=== PATIENT | male | born 1965 | race Caucasian/White ===

== ENCOUNTER 2019-06-25 11:13 | Emergency (ER) | payer SELFPAY ==
[2019-06-25] MEDS ORDERED: Sodium Chloride 0.9% 2.5 ML Syringe FLUSH PRN ×2 (11:15→11:17)
[2019-06-25] MEDS ORDERED: Sodium Chloride 0.9% 10 ML Syringe FLUSH PRN ×2 (11:15→11:17)
[2019-06-25] MEDS ORDERED: Morphine 4 MG/ML Syringe IVPUSH ONE ×2 (11:25→13:32)
[2019-06-25] MEDS ORDERED: Ondansetron 4 MG/2 ML SDV IVPUSH ONE (11:25)
[2019-06-25] MEDS ORDERED: Sodium Chloride 0.9% 1,000 ML IV ONE ×3 (11:27→15:10)
--- NOTE | 2019-06-25 11:38 | EDM.PDOC ---
ED HPI GENERAL MEDICAL PROBLEM - General Chief Complaint: Abdominal Pain Stated Complaint: SPOKE TO NURSE Time Seen by Provider: 06/25/19 11:17 Source of Information: Reports: Patient History Limitations: Reports: No Limitations - History of Present Illness INITIAL COMMENTS - FREE TEXT/NARRATIVE: HISTORY AND PHYSICAL: History of present illness: Patient is a 54-year-old male who presents to the emergency room with complaints of abdominal pain, nausea, vomiting, bright red blood per rectum and constipation. He reports for approximately 1 to 2 months he has had blood per rectum. He saw Dr. Jauregui last month and initially was scheduled for a colonoscopy but all procedures are on hold due to COIVD-19. He states he has continued to have blood per rectum but has been worse over the past 1 week. "I feel like I'm going (defecating) all the time; and a lot of blood just pours out ". Over the past 3 days he has not had any bowel movement, increased abdominal pain, nausea and vomiting immediately after any oral intake. His abdomen is distended and firm. Since arrival he is now complaining of weakness, shortness of breath, low back pain and tenderness with palpation or any pressure on his low abdomen. He does have a history of hepatitis C, denies any complications with this (never has had ascites/tapped). Patient denies any fever, chills, headache, change in vision, syncope or near syncope. Denies any chest pain, shortness of breath or cough. Review of systems: As per history of present illness and below otherwise all systems reviewed and negative. Past medical history: As per history of present illness and as reviewed below otherwise noncontributory. Surgical history: As per history of present illness and as reviewed below otherwise noncontributory. Social history: See social history for further information Family history: As per history of present illness and as reviewed below otherwise noncontributory. Physical exam: General: Chronically ill appearing 54-year-old male. Alert and oriented. Moderate distress due to abdominal pain but nontoxic appearing. Vital signs are stable and have been reviewed by me. HEENT: Atraumatic, normocephalic, pupils equal and reactive bilaterally, negative for conjunctival pallor or scleral icterus, mucous membranes moist, throat clear, neck supple, nontender, trachea midline. No drooling or trismus noted. No meningeal signs. No hot potato voice noted. Lungs: Clear to auscultation, breath sounds equal bilaterally, chest nontender. Heart: S1S2, regular rate and rhythm without overt murmur Abdomen: Firm, distended and generalized tenderness throughout. Negative for costovertebral tenderness. Pelvis: Stable nontender. Rectal: This was done with consent and a service car driver at the bedside. Hemoccult positive. Skin: Jaundiced with callahan hue appearance. Otherwise skin is intact, warm, dry. No lesions or rashes noted. Extremities: Atraumatic, moves all extremities per self without difficulty or deficits, negative for cords or calf pain. He is ambulatory; needs assitance due to weakness. Neurovascular unremarkable. Neuro: Awake, alert, oriented. Cranial nerves II through XII unremarkable. Cerebellum unremarkable. Motor and sensory unremarkable throughout. Exam nonfocal. Notes: Upon patient arrival Dr Berry was involved in patient care; he did assess this patient as well. Nursing staff and myself have had difficult time with IV access, DESIGN ENG was called to start line. Nursing was able to get enough blood for labs to be drawn, his vitals are stable. 1230: DESIGN ENG was able to get IV access. Blood culture was obtained. IV abx ordered due to leukocytosis/sepsis protocol 1420: Nursing staff has called CT multiple times for results for this patient. Patient remains vitally stable and is comfortable at this time. He denies any nausea or dry heaving. 1430: CT shows liver lesions which are suspicious for metastatic lesions. 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 Dr. Jauregui, general surgeon on-call was notified of this patient. He would like the patient transferred to [facility] in [facility] as he feels this will be a complex case. 1445: Dr. Hargrove, ER physician at [facility] in [place], was consulted on this case. He did speak with the general surgeon to make sure they were comfortable accepting this case. He did call back to confirm that they will accept this patient for further care and management. Patient was made aware of all diagnostic findings. He is comfortable and denies any nausea or vomiting, declines wanting an NG tube at this time. Dr. Hargrove did not have any additional orders for transfer. Will go via ground EMS Diagnostics: CBC, CMP, UA, Lipase, Ammonia, CT abdomen and pelvis, type and screen, Hemoccult stool Therapeutics: IV x 2, IV fluid, Morphine, Zofran, Vancomycin Impression: Bowel obstruction History of Hepatitis C Plan: Transfer to [facility] via ground EMS. Definitive disposition and diagnosis as appropriate pending reevaluation and review of above. Duration: Week(s): Location: Reports: Abdomen, Back lower abdomen Pain Score (Numeric/FACES): 7 - Related Data Allergies Allergy/AdvReac Type Severity Reaction Status Date / Time No Known Allergies Allergy Verified 06/25/19 11:38 Home Meds: Home Meds . [No Known Home Meds] 05/26/19 [History] ED ROS GENERAL - Review of Systems Review Of Systems: Comprehensive ROS is negative, except as noted in HPI. ED EXAM, GI/ABD - Physical Exam Exam: See Below (See dictation) Course - Vital Signs Last Recorded V/S: Last Vital Signs Temp 97.4 F 06/25/19 11:20 Pulse 82 06/25/19 13:31 Resp 18 06/25/19 13:31 BP 148/101 H 06/25/19 13:31 Pulse Ox 97 06/25/19 13:31 - Orders/Labs/Meds Orders: Active Orders 24 hr Category Date Time Status EKG Documentation Completion [RC] STAT Care 06/25/19 11:15 Active Oxygen Therapy, ED [RC] ASDIRECTED Care 06/25/19 13:07 Active CULTURE BLOOD [BC] Stat Lab 06/25/19 12:25 Results CULTURE BLOOD [BC] Stat Lab 06/25/19 12:32 Received UA RFX PETAR AND CULT IF INDIC [URIN] Stat Lab 06/25/19 14:34 Ordered Sodium Chloride 0.9% [Saline Flush] Med 06/25/19 11:15 Active 10 ml FLUSH ASDIRECTED PRN Sodium Chloride 0.9% [Saline Flush] Med 06/25/19 11:17 Active 10 ml FLUSH ASDIRECTED PRN Sodium Chloride 0.9% [Saline Flush] Med 06/25/19 11:15 Active 2.5 ml FLUSH ASDIRECTED PRN Sodium Chloride 0.9% [Saline Flush] Med 06/25/19 11:17 Active 2.5 ml FLUSH ASDIRECTED PRN Blood Culture x2 Reflex Set [OM.PC] Stat Oth 06/25/19 12:30 Ordered Saline Lock Insert [OM.PC] Stat Oth 06/25/19 11:15 Ordered Saline Lock Insert [OM.PC] Stat Oth 06/25/19 11:17 Ordered Medication Orders Sodium Chloride (Saline Flush) 10 ml FLUSH ASDIRECTED PRN PRN Reason: Keep Vein Open Last Admin: 06/25/19 13:16 Dose: 10 ml Sodium Chloride (Saline Flush) 2.5 ml FLUSH ASDIRECTED PRN PRN Reason: Keep Vein Open Last Admin: 06/25/19 13:16 Dose: 2.5 ml Sodium Chloride (Saline Flush) 10 ml FLUSH ASDIRECTED PRN PRN Reason: Keep Vein Open Last Admin: 06/25/19 13:16 Dose: 10 ml Sodium Chloride (Saline Flush) 2.5 ml FLUSH ASDIRECTED PRN PRN Reason: Keep Vein Open Last Admin: 06/25/19 13:16 Dose: 2.5 ml Labs: Laboratory Tests 06/25/19 06/25/19 06/25/19 Range/Units 11:15 11:15 11:15 WBC 23.20 H (4.0-11.0) K/uL RBC 5.35 (4.50-5.90) M/uL Hgb 17.0 (13.0-17.0) g/dL Hct 49.8 (38.0-50.0) % MCV 93.1 (80.0-98.0) fL MCH 31.8 (27.0-32.0) pg MCHC 34.1 (31.0-37.0) g/dL RDW Std Deviation 42.4 (28.0-62.0) fl RDW Coeff of Vicky 13 (11.0-15.0) % Plt Count 478 H (150-400) K/uL MPV 9.80 (7.40-12.00) fL Neut % (Auto) 84.5 H (48.0-80.0) % Lymph % (Auto) 7.2 L (16.0-40.0) % [place] % (Auto) 8.2 (0.0-15.0) % Eos % (Auto) 0.0 (0.0-7.0) % Baso % (Auto) 0.1 (0.0-1.5) % Neut # (Auto) 19.6 H (1.4-5.7) K/uL Lymph # (Auto) 1.7 (0.6-2.4) K/uL [place] # (Auto) 1.9 H (0.0-0.8) K/uL Eos # (Auto) 0.0 (0.0-0.7) K/uL Baso # (Auto) 0.0 (0.0-0.1) K/uL Nucleated RBC % 0.0 /100WBC Nucleated RBCs # 0 K/uL INR 1.05 Lactate (0.20-2.00) mmol/L Sodium 135 L (136-148) mmol/L Potassium 4.4 (3.5-5.1) mmol/L Chloride 95 L (98-107) mmol/L Carbon Dioxide 30.6 (21.0-32.0) mmol/L BUN 25 H (7.0-18.0) mg/dL Creatinine 1.1 (0.8-1.3) mg/dL Est Cr Clr Drug Dosing TNP Estimated GFR (MDRD) > 60.0 ml/min Glucose 141 H (74-106) mg/dL Calcium 9.2 (8.5-10.1) mg/dL Total Bilirubin 0.9 (0.2-1.0) mg/dL AST 32 (15-37) IU/L ALT 30 (14-63) IU/L Alkaline Phosphatase 110 (46-116) U/L Ammonia (19-54) ug/dL Total Protein 7.8 (6.4-8.2) g/dL Albumin 3.7 (3.4-5.0) g/dL Globulin 4.1 H (2.6-4.0) g/dL Albumin/Globulin Ratio 0.9 (0.9-1.6) Lipase (73-393) U/L Blood Type Antibody Screen 06/25/19 06/25/19 06/25/19 Range/Units 11:15 11:15 12:25 WBC (4.0-11.0) K/uL RBC (4.50-5.90) M/uL Hgb (13.0-17.0) g/dL Hct (38.0-50.0) % MCV (80.0-98.0) fL MCH (27.0-32.0) pg MCHC (31.0-37.0) g/dL RDW Std Deviation (28.0-62.0) fl RDW Coeff of Vicky (11.0-15.0) % Plt Count (150-400) K/uL MPV (7.40-12.00) fL Neut % (Auto) (48.0-80.0) % Lymph % (Auto) (16.0-40.0) % [place] % (Auto) (0.0-15.0) % Eos % (Auto) (0.0-7.0) % Baso % (Auto) (0.0-1.5) % Neut # (Auto) (1.4-5.7) K/uL Lymph # (Auto) (0.6-2.4) K/uL [place] # (Auto) (0.0-0.8) K/uL Eos # (Auto) (0.0-0.7) K/uL Baso # (Auto) (0.0-0.1) K/uL Nucleated RBC % /100WBC Nucleated RBCs # K/uL INR Lactate (0.20-2.00) mmol/L Sodium (136-148) mmol/L Potassium (3.5-5.1) mmol/L Chloride (98-107) mmol/L Carbon Dioxide (21.0-32.0) mmol/L BUN (7.0-18.0) mg/dL Creatinine (0.8-1.3) mg/dL Est Cr Clr Drug Dosing Estimated GFR (MDRD) ml/min Glucose (74-106) mg/dL Calcium (8.5-10.1) mg/dL Total Bilirubin (0.2-1.0) mg/dL AST (15-37) IU/L ALT (14-63) IU/L Alkaline Phosphatase (46-116) U/L Ammonia <17 L (19-54) ug/dL Total Protein (6.4-8.2) g/dL Albumin (3.4-5.0) g/dL Globulin (2.6-4.0) g/dL Albumin/Globulin Ratio (0.9-1.6) Lipase 52 L (73-393) U/L Blood Type AB POSITIVE Antibody Screen NEGATIVE 04/25/20 Range/Units 12:25 WBC (4.0-11.0) K/uL RBC (4.50-5.90) M/uL Hgb (13.0-17.0) g/dL Hct (38.0-50.0) % MCV (80.0-98.0) fL MCH (27.0-32.0) pg MCHC (31.0-37.0) g/dL RDW Std Deviation (28.0-62.0) fl RDW Coeff of Vicky (11.0-15.0) % Plt Count (150-400) K/uL MPV (7.40-12.00) fL Neut % (Auto) (48.0-80.0) % Lymph % (Auto) (16.0-40.0) % [place] % (Auto) (0.0-15.0) % Eos % (Auto) (0.0-7.0) % Baso % (Auto) (0.0-1.5) % Neut # (Auto) (1.4-5.7) K/uL Lymph # (Auto) (0.6-2.4) K/uL [place] # (Auto) (0.0-0.8) K/uL Eos # (Auto) (0.0-0.7) K/uL Baso # (Auto) (0.0-0.1) K/uL Nucleated RBC % /100WBC Nucleated RBCs # K/uL INR Lactate 2.6 H* (0.20-2.00) mmol/L Sodium (136-148) mmol/L Potassium (3.5-5.1) mmol/L Chloride (98-107) mmol/L Carbon Dioxide (21.0-32.0) mmol/L BUN (7.0-18.0) mg/dL Creatinine (0.8-1.3) mg/dL Est Cr Clr Drug Dosing Estimated GFR (MDRD) ml/min Glucose (74-106) mg/dL Calcium (8.5-10.1) mg/dL Total Bilirubin (0.2-1.0) mg/dL AST (15-37) IU/L ALT (14-63) IU/L Alkaline Phosphatase (46-116) U/L Ammonia (19-54) ug/dL Total Protein (6.4-8.2) g/dL Albumin (3.4-5.0) g/dL Globulin (2.6-4.0) g/dL Albumin/Globulin Ratio (0.9-1.6) Lipase (73-393) U/L Blood Type Antibody Screen Meds: Medications Generic Name Dose Route Start Last Admin Trade Name Romero PRN Reason Stop Dose Admin Sodium Chloride 10 ml 06/25/19 11:15 06/25/19 13:16 Saline Flush FLUSH 10 ml ASDIRECTED PRN Administration Keep Vein Open Sodium Chloride 2.5 ml 06/25/19 11:15 06/25/19 13:16 Saline Flush FLUSH 2.5 ml ASDIRECTED PRN Administration Keep Vein Open Sodium Chloride 10 ml 06/25/19 11:17 06/25/19 13:16 Saline Flush FLUSH 10 ml ASDIRECTED PRN Administration Keep Vein Open Sodium Chloride 2.5 ml 06/25/19 11:17 06/25/19 13:16 Saline Flush FLUSH 2.5 ml ASDIRECTED PRN Administration Keep Vein Open Discontinued Medications Generic Name Dose Route Start Last Admin Trade Name Romero PRN Reason Stop Dose Admin Sodium Chloride 1,000 mls @ 999 mls/hr 06/25/19 11:27 06/25/19 12:35 Normal Saline IV 06/25/19 12:27 999 mls/hr STAT ONE Administration Sodium Chloride 1,000 mls @ 999 mls/hr 06/25/19 12:39 06/25/19 13:14 Normal Saline IV 06/25/19 13:39 999 mls/hr STAT ONE Administration Vancomycin HCl 1 gm/ Sodium 250 mls @ 166 mls/hr 06/25/19 12:40 06/25/19 13: 14 Chloride IV 06/25/19 14:10 166 mls/hr ONETIME ONE Administration Iopamidol 100 ml 06/25/19 13:46 06/25/19 13:46 Isovue Multipack-370 (76%) IVPUSH 06/25/19 13:47 100 ml ONETIME ONE Administration Morphine Sulfate 4 mg 06/25/19 11:25 06/25/19 12:35 Morphine IVPUSH 06/25/19 11:26 4 mg ONETIME ONE Administration Morphine Sulfate 4 mg 06/25/19 13:32 06/25/19 13:50 Morphine IVPUSH 06/25/19 13:33 4 mg ONETIME ONE Administration Ondansetron HCl 4 mg 06/25/19 11:25 06/25/19 12:35 Zofran IVPUSH 06/25/19 11:26 4 mg ONETIME ONE Administration Departure - Departure Time of Disposition: 15:00 Disposition: DC/Tfer to [facility] 02 Clinical Impression: History of hepatitis C Bowel obstruction Qualifiers: Intestinal obstruction type: unspecified Intestinal obstruction extent: unspecified extent Qualified Code(s): K56.609 - Unspecified intestinal obstruction, unspecified as to partial versus complete obstruction - Discharge Information Referrals: PCP,Unobtain [Primary Care Provider] - Forms: ED Department Discharge Sepsis Event Note - Focused Exam Vital Signs: Vital Signs Temp Pulse Resp BP Pulse Ox 06/25/19 13:31 82 18 148/101 H 97 06/25/19 12:42 82 18 140/97 H 95 06/25/19 11:20 97.4 F 92 18 129/96 H 92 L Date Exam was Performed: 06/25/19 Time Exam was Performed: 15:00 - My Orders Last 24 Hours: My Active Orders 06/25/19 11:15 EKG Documentation Completion [RC] STAT Sodium Chloride 0.9% [Saline Flush] 10 ml FLUSH ASDIRECTED PRN Sodium Chloride 0.9% [Saline Flush] 2.5 ml FLUSH ASDIRECTED PRN Saline Lock Insert [OM.PC] Stat 06/25/19 11:17 Sodium Chloride 0.9% [Saline Flush] 10 ml FLUSH ASDIRECTED PRN Sodium Chloride 0.9% [Saline Flush] 2.5 ml FLUSH ASDIRECTED PRN Saline Lock Insert [OM.PC] Stat 06/25/19 12:25 CULTURE BLOOD [BC] Stat 06/25/19 12:30 Blood Culture x2 Reflex Set [OM.PC] Stat 06/25/19 12:32 CULTURE BLOOD [BC] Stat 06/25/19 13:07 Oxygen Therapy, ED [RC] ASDIRECTED 06/25/19 14:34 UA RFX PETAR AND CULT IF INDIC [URIN] Stat - Assessment/Plan Last 24 Hours: My Active Orders 06/25/19 11:15 EKG Documentation Completion [RC] STAT Sodium Chloride 0.9% [Saline Flush] 10 ml FLUSH ASDIRECTED PRN Sodium Chloride 0.9% [Saline Flush] 2.5 ml FLUSH ASDIRECTED PRN Saline Lock Insert [OM.PC] Stat 06/25/19 11:17 Sodium Chloride 0.9% [Saline Flush] 10 ml FLUSH ASDIRECTED PRN Sodium Chloride 0.9% [Saline Flush] 2.5 ml FLUSH ASDIRECTED PRN Saline Lock Insert [OM.PC] Stat 06/25/19 12:25 CULTURE BLOOD [BC] Stat 06/25/19 12:30 Blood Culture x2 Reflex Set [OM.PC] Stat 06/25/19 12:32 CULTURE BLOOD [BC] Stat 06/25/19 13:07 Oxygen Therapy, ED [RC] ASDIRECTED 06/25/19 14:34 UA RFX PETAR AND CULT IF INDIC [URIN] Stat
[2019-06-25 12:01] LABS: BLOOD UREA NITROGEN,BUN 25 mg/dL (7.0-18.0); CARBON DIOXIDE,CO2 30.6 mmol/L (21.0-32.0); CHLORIDE,CL 95 mmol/L (98-107); GLUCOSE RANDOM 141 mg/dL (74-106); POTASSIUM,K 4.4 mmol/L (3.5-5.1); SODIUM,NA 135 mmol/L (136-148)
--- NOTE | 2019-06-25 12:40 | PCM.SN.2 ---
- Free Text/Narrative Note: consulted for IV placement. Several IV attempts made by ER staff. Patient identified, verbal consent from patient to place an IV. L) AC attempt with no success. R) AC 2 attempts with ultrasound with 1 successful. Aseptic technique- [address] lateral side of AC, Labs obtained, dressing applied and secured with tape. ER nurse notified.
[2019-06-25] MEDS ORDERED: Iopamidol 755 MG/ML 200 ML Multipack Bottle IVPUSH ONE (13:46)
--- NOTE | 2019-06-25 14:33 | CT ---
CT abdomen and pelvis Technique: Multiple axial sections were obtained from above the dome of the diaphragm inferiorly through the pubic symphysis. Intravenous contrast was utilized. No oral contrast has been given. Comparison: No prior abdominal imaging is available. Findings: Very minimal right-sided pleural effusion is seen. Spleen shows evidence of calcifications compatible with calcified granulomas. Liver shows at least 2 low density lesions which are suspicious for metastatic disease. Small hiatal hernia is noted. Adrenal glands show no nodule. Right kidney shows no hydronephrosis or mass. Left kidney shows 2 small low density findings believed to represent small cysts with largest measuring 1 cm. Pancreas shows no discrete abnormality. Aorta shows no aneurysm. Atherosclerotic calcification is noted within the aortoiliac arteries. No retroperitoneal adenopathy is seen. Diffusely dilated colon is seen containing air and bowel material. Air is noted between bowel material and colonic wall on the right side believed to represent luminal air rather than definite pneumatosis coli. There is soft tissue material within the sigmoid colon which is felt to represent the obstructing lesion. 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 Appendix not definitely visualized. No pelvic adenopathy is appreciated. Bone window settings were reviewed which shows mild diffuse degenerative change within the spine. No acute osseous finding is appreciated. Impression: 1. 2 low density liver lesions suspicious for metastatic lesions. One lesion measures approximately 2.9 cm and 2nd lesion measures approximately 4.3 cm. 2. 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 Endoscopy correlation is recommended. 3. Other findings as noted above. Diagnostic code #9 This report was dictated in MDT
[2019-06-25] MEDS ORDERED: Morphine 2 MG/ML Syringe IVPUSH ONE (15:10)
== END 2019-06-25 15:41 ==
LOC: MW.ED 11:13
DX: K56.609 Unspecified intestinal obstruction, unspecified as to partial versus complete obstruction (principal); Z86.19 Personal history of other infectious and parasitic diseases
CPT/HCPCS: 36415; 74177; 80053; 82140; 83605; 83690; 85025; 85610; 86850; 86900; 86901; 87040; 93005; 96361; 96365; 96366; 96375; 96376; 99285; J2270; J2405; J3370; J7030; J7050; Q9967; 99284

== ENCOUNTER 2019-07-21 09:02 | Day surgery (SDC) | payer MEDICAID ==
[~2019-07-21 09:02] MED LIST: Sodium Chloride 0.9% 10 ML SDV IV PRN; Sodium Chloride 0.9% 10 ML Syringe FLUSH PRN; Sodium Chloride 0.9% 2.5 ML Syringe FLUSH PRN
[2019-07-21] MEDS ORDERED: Propofol 200 MG/20 ML SDV ONE ×2 (09:05→09:22)
[2019-07-21] MEDS ORDERED: fentaNYL 100 MCG/2 ML SDV ONE (09:05)
[2019-07-21] MEDS ORDERED: Lidocaine 2% 5 ML SDV ONE (09:05)
[2019-07-21] MEDS ORDERED: Midazolam 1 MG/ML 2 ML SDV ONE (09:05)
--- NOTE | 2019-07-21 09:39 | PCM.PREANE ---
Preanesthetic Assessment - Anesthesia/Transfusion/Family Hx Anesthesia History: Prior Anesthesia Without Reaction Family History of Anesthesia Reaction: No Transfusion History: No Prior Transfusion(s) Intubation History: Unknown - Review of Systems General: No Symptoms Pulmonary: No Symptoms Cardiovascular: No Symptoms Gastrointestinal: No Symptoms Neurological: No Symptoms Other: Reports: None - Physical Assessment Height: 5 ft 11 in Weight: 70.307 kg ASA Class: 2 Mental Status: Alert & Oriented x3 Airway Class: Mallampati = 2 Dentition: Reports: Normal Dentition Thyro-Mental Finger Breadths: 3 Mouth Opening Finger Breadths: 3 ROM/Head Extension: Full Lungs: Clear to Auscultation, Normal Respiratory Effort Cardiovascular: Regular Rate, Regular Rhythm - Allergies Allergies/Adverse Reactions: Allergies Allergy/AdvReac Type Severity Reaction Status Date / Time No Known Allergies Allergy Verified 07/08/19 08:49 - Blood Blood Available: No - Anesthesia Plan Pre-Op Medication Ordered: None - Acknowledgements Anesthesia Type Planned: MAC Pt an Appropriate Candidate for the Planned Anesthesia: Yes Alternatives and Risks of Anesthesia Discussed w Pt/Guardian: Yes Pt/Guardian Understands and Agrees with Anesthesia Plan: Yes PreAnesthesia Questionnaire HEENT History: Reports: None Cardiovascular History: Reports: Heart Murmur Respiratory History: Reports: None Gastrointestinal History: Reports: Hepatitis, Other (See Below) (sigmoid colon lesion) Other Gastrointestinal History: h/o hepatitis C, not treated Genitourinary History: Reports: None Musculoskeletal History: Reports: Fracture Other Musculoskeletal History: fx arm as a child Neurological History: Reports: None Psychiatric History: Reports: None Endocrine/Metabolic History: Reports: None Hematologic History: Reports: None Immunologic History: Reports: None Oncologic (Cancer) History: Reports: None Dermatologic History: Reports: None - Infectious Disease History Infectious Disease History: Reports: Hepatitis C - Past Surgical History Head Surgeries/Procedures: Reports: None HEENT Surgical History: Reports: None Cardiovascular Surgical History: Reports: None Respiratory Surgical History: Reports: None GI Surgical History: Reports: Colon, Colostomy (transferse colostomy 2-3 weeks ago), Other (See Below) Other GI Surgeries/Procedures: surgery for obstructing colon mass with colostomy Male Surgical History: Reports: None Endocrine Surgical History: Reports: None Neurological Surgical History: Reports: None Musculoskeletal Surgical History: Reports: None Oncologic Surgical History: Reports: None Dermatological Surgical History: Reports: None - SUBSTANCE USE Smoking Status *Q: Current Every Day Smoker (1 ppd) Tobacco Use Within Last Twelve Months: Cigarettes Recreational Drug Type: Reports: Methamphetamine (last time 2-3 weeks ago before colon surgery) Recreational Drug Last Use: last used 7 months ago - HOME MEDS Home Medications: Home Meds Acetaminophen/oxyCODONE [Percocet 325-5 MG] 1 - 2 tab PO ASDIRECTED PRN [History] - CURRENT (IN HOUSE) MEDS Current Meds: Current Medications Lactated Ringer's (Ringers, Lactated) 1,000 mls @ 125 mls/hr IV ASDIRECTED AMANDA Sodium Chloride (Saline Flush) 10 ml FLUSH ASDIRECTED PRN PRN Reason: Keep Vein Open Sodium Chloride (Saline Flush) 2.5 ml FLUSH ASDIRECTED PRN PRN Reason: Keep Vein Open Sodium Chloride (Saline Flush) 10 ml FLUSH ASDIRECTED PRN PRN Reason: Keep Vein Open Sodium Chloride (Saline Flush) 2.5 ml FLUSH ASDIRECTED PRN PRN Reason: Keep Vein Open Sodium Chloride (Normal Saline) 10 ml IV ASDIRECTED PRN PRN Reason: IV Use Discontinued Medications Fentanyl (Sublimaze) Confirm Administered Dose 100 mcg .ROUTE .STK-MED ONE Stop: 07/21/19 09:06 Lidocaine (Xylocaine-Mpf 2%) Confirm Administered Dose 5 ml .ROUTE .STK-MED ONE Stop: 07/21/19 09:06 Midazolam HCl (Versed 1 Mg/Ml) Confirm Administered Dose 2 mg .ROUTE .STK-MED ONE Stop: 07/21/19 09:06 Propofol (Diprivan 20 Ml) Confirm Administered Dose 400 mg .ROUTE .STK-MED ONE Stop: 07/21/19 09:06 Propofol (Diprivan 20 Ml) Confirm Administered Dose 200 mg .ROUTE .STK-MED ONE Stop: 07/21/19 09:23
[2019-07-21] MEDS: Lactated Ringers 1,000 ML IV SCH ×2 (09:55→11:03)
[2019-07-21] MEDS ORDERED: ePHEDrine 50 MG/ML SDV ONE (10:07)
[2019-07-21] MEDS ORDERED: Glycopyrrolate 0.2 MG/ML SDV ONE (10:13)
[2019-07-21] MEDS ORDERED: cefOXitin 1 GM Vial ONE (10:20)
[2019-07-21] MEDS ORDERED: Sodium Chloride 0.9% 20 ML ONE (10:20)
--- NOTE | 2019-07-21 10:47 | PCM.POSTAN ---
POST ANESTHESIA ASSESSMENT - MENTAL STATUS Mental Status: Alert, Oriented - VITAL SIGNS Vital Signs: Last Vital Signs Temp 36.7 C 07/21/19 09:10 Pulse 75 07/21/19 09:10 Resp 18 07/21/19 09:10 BP 102/70 07/21/19 09:10 Pulse Ox 98 07/21/19 09:10 - RESPIRATORY Respiratory Status: Respiratory Rate WNL, Airway Patent, O2 Saturation Stable - CARDIOVASCULAR CV Status: Pulse Rate WNL, Blood Pressure Stable - GASTROINTESTINAL GI Status: No Symptoms - PAIN Pain Score: 0 - POST OP HYDRATION Hydration Status: Adequate & Stable - OBSERVATIONS Free Text/Narrative:: No anesthesia problems
--- NOTE | 2019-07-21 11:00 | PCM.OPNOTE ---
- General Post-Op/Procedure Note Date of Surgery/Procedure: 07/21/19 Operative Procedure(s): Flexible sigmoidoscopy with biopsy Findings: Obstructing mass at 20 cm Pre Op Diagnosis: Sigmoid colon mass Post-Op Diagnosis: same Anesthesia Technique: MAC Primary Surgeon: Soni Yun Condition: Good Free Text/Narrative:: Intake & Output 07/20/19 07/21/19 07/21/19 22:59 06:59 14:59 Intake Total 900 Balance 900
--- NOTE | 2019-07-21 11:05 | PCM.SN.2 ---
- Free Text/Narrative Note: Patient is a 54 year old male who presented for a flexible sigmoidoscopy. He has a mass in the sigmoid colon and biopsies were needed. He did not come with a ride. He is unreliable and he stated that he had no one to take him home. The decision was made to keep him overnight for observation. Then he changed his story and said that he did have a ride. He also told us he came to the hospital via a cab but then said he drove here. I told the patient that if he has someone who can come here, sign for him, and take him home he can go home today. I reinforced with him that he cannot drive today at all. He is at risk of hurting himself or others with the medications he has received and it is illegal. If he cannot produce a ride he will be admitted to the hospital for close monitoring. During the case, he had low BP and needed pressors. He will need an ECHO either if he stays in house or as an outpatient. I am also concerned that he may be using illicit drugs given his unreliable behavior. Will need drug testing (UA) as this can affect the medications he receiving or will receive in the future.
--- NOTE | 2019-07-21 15:17 | OR ---
SURGEON: SONI YUN MD DATE OF PROCEDURE: 07/21/2019 PREOPERATIVE DIAGNOSIS: Sigmoid colon mass. POSTOPERATIVE DIAGNOSIS: Sigmoid colon mass. PROCEDURE PERFORMED: Flexible sigmoidoscopy. PRIMARY SURGEON: Soni Yun MD ANESTHESIA: MAC. INSTRUMENT USED: Olympus colonoscope. EXTENT OF EXAM: To 20 cm from the anal verge. PREPARATION: Good. LIMITATIONS: None. INDICATIONS: The patient is a 54-year-old male who recently underwent an emergent diverting loop colostomy for an obstructing colonic mass. The patient has recovered and is now in need of a diagnostic procedure to determine what this mass in his sigmoid colon is. The patient and I discussed the procedure; expected perioperative course; and the risks including bleeding, infection, or perforation. He verbalized understanding and wishes to proceed. PROCEDURE IN DETAIL: The patient was brought into the OR and placed in the left lateral decubitus position on the OR cart. A time-out was completed verifying the patient's name, age, date of , allergies, and procedure to be performed. Monitored anesthesia care was induced. Continuous oxygen was provided via nasal cannula throughout the procedure. The patient was noted during the procedure to have very low blood pressure and required pressors while receiving anesthesia. Once adequate anesthesia was induced and the patient was stable, a digital rectal exam was performed. This exam was within normal limits. A well-lubricated colonoscope was inserted in the rectum and advanced under direct visualization to 20 cm from the anal verge. At this level, I encountered an irregular appearing colonic mass that appeared to be obstructing the colon. Multiple biopsies of this were taken using cold biopsy forceps and sent to pathology, labeled as sigmoid colon mass. Several pictures of the area were taken. I then monitored the area for hemostasis. Once I was assured that hemostasis had been achieved, the scope was then fully withdrawn. The remainder of the colon was closely inspected. Other than some mild proctitis, the remainder of the colon appeared normal. The scope was removed and the procedure terminated. The patient was taken to PACU. His blood pressure improved with fluids and cessation of anesthesia. He otherwise tolerated the procedure well with no acute complications. ENDOSCOPIC DIAGNOSIS: Sigmoid colon mass. RECOMMENDATIONS: Follow up in clinic in 2 weeks to review the pathology results and the next steps in treatment. Pathology results will be sent to [facility] for further review as well. ABHISHEK / BENJAMÍN /[id number]
--- NOTE | 2019-07-21 15:20 | PCM48HPAN ---
Post Anesthesia Note - EVALUATION WITHIN 48HRS OF ANESTHETIC Vital Signs in Normal Range: Yes Patient Participated in Evaluation: Yes Respiratory Function Stable: Yes Airway Patent: Yes Cardiovascular Function Stable: Yes Hydration Status Stable: Yes Pain Control Satisfactory: Yes Nausea and Vomiting Control Satisfactory: Yes Mental Status Recovered: Yes Vital Signs: Last Vital Signs Temp 36.6 C 07/21/19 12:30 Pulse 66 07/21/19 12:30 Resp 18 07/21/19 12:30 BP 100/64 07/21/19 12:30 Pulse Ox 97 07/21/19 12:30 - COMMENTS/OBSERVATIONS Free Text/Narrative:: No anesthesia problems
== END 2019-07-21 14:47 | disposition home or self-care (01) ==
LOC: MW.SDS 09:02 → MW.MS 10:51 → MW.SDS 14:47
PROVIDERS: ATTEND Surgery
DX: C18.7 Malignant neoplasm of sigmoid colon (principal); K62.89 Other specified diseases of anus and rectum; R01.1 Cardiac murmur, unspecified; F17.210 Nicotine dependence, cigarettes, uncomplicated
CPT/HCPCS: 45331; J0694; J2001; J2250; J2704; J3010; J3490; J7120

== ENCOUNTER 2019-07-27 16:19 | Emergency (ER) | payer MEDICAID, OTHER ==
[2019-07-27] MEDS ORDERED: Sodium Chloride 0.9% 10 ML Syringe FLUSH PRN (16:30)
[2019-07-27] MEDS ORDERED: Ondansetron 4 MG/2 ML SDV IVPUSH ONE ×2 (16:30→19:30)
[2019-07-27] MEDS ORDERED: Sodium Chloride 0.9% 1,000 ML IV ONE ×2 (16:30→20:20)
[2019-07-27] MEDS ORDERED: Sodium Chloride 0.9% 2.5 ML Syringe FLUSH PRN (16:30)
--- NOTE | 2019-07-27 16:41 | EDM.PDOC ---
ED HPI GENERAL MEDICAL PROBLEM - General Chief Complaint: Abdominal Pain Stated Complaint: SICK TO STOMACH Time Seen by Provider: 07/27/19 16:40 Source of Information: Reports: Patient History Limitations: Reports: No Limitations - History of Present Illness INITIAL COMMENTS - FREE TEXT/NARRATIVE: HISTORY AND PHYSICAL: History of present illness: Patient is a 54-year-old male presents to the ED with complaint of abdominal pain. Patient was seen in the ED 1 month ago for a bowel obstruction, was sent to [place] and had a colostomy placed. Patient had a follow up with Dr. Yun and had a colonoscopy with biopsy. He states he has a follow up on this in 2 days. He reports for the past 3 days he has been having generalized abdominal pain and states he has not had any stool in his colostomy. He states he reports having nausea and has vomited twice today. He denies fevers, chills, chest pain , shortness of breath, cough, dysuria, hematuria, back pain. Patient states he is out of his norco. Patient has a follow with Dr. Yun in 2 days to go over results. Review of systems: As per history of present illness and below otherwise all systems reviewed and negative. Past medical history: As per history of present illness and as reviewed below otherwise noncontributory. Surgical history: As per history of present illness and as reviewed below otherwise noncontributory. Social history: No reported history of drug or alcohol abuse. Family history: As per history of present illness and as reviewed below otherwise noncontributory. Physical exam: General: Patient sitting comfortably in no acute distress and nontoxic appearing HEENT: Atraumatic, normocephalic, pupils reactive, negative for conjunctival pallor or scleral icterus, mucous membranes moist, throat clear, neck supple, nontender, trachea midline. No meningeal signs. Lungs: Clear to auscultation, breath sounds equal bilaterally, chest nontender. Heart: S1S2, regular, negative for clicks, rubs, or overt murmur. Abdomen: Soft, nondistended, nontender. Colostomy in place with stool and gas. There is no obvious blood or melena. Skin around ostomy without erythema. Negative for masses or hepatosplenomegaly. Negative for costovertebral tenderness. No rigidity, rebound, guarding. Pelvis: Stable nontender. Genitourinary: Deferred. Rectal: Deferred. Extremities: Atraumatic, negative for cords or calf pain. Neurovascular unremarkable. Neuro: Awake, alert, oriented. Cranial nerves II through XII unremarkable. Cerebellum unremarkable. Motor and sensory unremarkable throughout. Exam nonfocal. Notes: I did discuss findings with Dr. Jaimes, general surgery in [place], he states patient can follow up with general surgery here for outpatient EGD or gastric emptying study. He states NG may be placed if patient continues to have vomiting. He did vomit once while in ED but controlled with zofran. Diagnostics: CBC, CMP, UA Therapeutics: 1L NS IV 4mg Zofran IV 4mg Morphine IV Prescriptions: Callahan (#15) Zofran Impression: Abdominal pain, vomiting Plan: Take zofran as needed for nausea and vomiting. You may take norco as needed for severe pain, do not take while driving as it may make you drowsy Follow up with general surgery at your scheduled appointment Return to ED as needed as discussed Definitive disposition and diagnosis as appropriate pending reevaluation and review of above. abdominal Pain Score (Numeric/FACES): 15 - Related Data Allergies Allergy/AdvReac Type Severity Reaction Status Date / Time No Known Allergies Allergy Verified 07/27/19 16:35 Home Meds: Home Meds Hydrocodone/Acetaminophen [Callahan 10-325 Tablet] 1 each PO Q4H PRN #15 tablet [Rx] Ondansetron [Zofran ODT] 4 mg PO Q6H PRN #10 tab.dis 07/27/19 [Rx] Past Medical History HEENT History: Reports: None Cardiovascular History: Reports: Heart Murmur Respiratory History: Reports: None Gastrointestinal History: Reports: Hepatitis, Other (See Below) (sigmoid colon lesion) Other Gastrointestinal History: h/o hepatitis C, not treated Genitourinary History: Reports: None Musculoskeletal History: Reports: Fracture Other Musculoskeletal History: fx arm as a child Neurological History: Reports: None Psychiatric History: Reports: None Endocrine/Metabolic History: Reports: None Hematologic History: Reports: None Immunologic History: Reports: None Oncologic (Cancer) History: Reports: None Dermatologic History: Reports: None - Infectious Disease History Infectious Disease History: Reports: Hepatitis C - Past Surgical History Head Surgeries/Procedures: Reports: None HEENT Surgical History: Reports: None Cardiovascular Surgical History: Reports: None Respiratory Surgical History: Reports: None GI Surgical History: Reports: Colon, Colostomy (transferse colostomy 2-3 weeks ago), Other (See Below) Other GI Surgeries/Procedures: surgery for obstructing colon mass with colostomy Male Surgical History: Reports: None Endocrine Surgical History: Reports: None Neurological Surgical History: Reports: None Musculoskeletal Surgical History: Reports: None Oncologic Surgical History: Reports: None Dermatological Surgical History: Reports: None Social & Family History - Family History Family Medical History: Noncontributory - Caffeine Use Caffeine Use: Reports: Soda, Tea ED ROS GENERAL - Review of Systems Review Of Systems: Comprehensive ROS is negative, except as noted in HPI. ED EXAM, GI/ABD - Physical Exam Exam: See Below (see dictation) Course - Vital Signs Last Recorded V/S: Last Vital Signs Temp 97.7 F 07/27/19 16:33 Pulse 83 07/27/19 16:33 Resp 16 07/27/19 16:33 BP 112/85 07/27/19 16:33 Pulse Ox 95 07/27/19 16:33 - Orders/Labs/Meds Orders: Active Orders 24 hr Category Date Time Status Sodium Chloride 0.9% [Normal Saline] 1,000 ml Med 07/27/19 20:20 Ordered IV .Bolus Sodium Chloride 0.9% [Saline Flush] Med 07/27/19 16:30 Active 10 ml FLUSH ASDIRECTED PRN Sodium Chloride 0.9% [Saline Flush] Med 07/27/19 16:30 Active 2.5 ml FLUSH ASDIRECTED PRN Saline Lock Insert [OM.PC] Stat Oth 07/27/19 16:30 Ordered Medication Orders Sodium Chloride (Normal Saline) 1,000 mls @ 1,000 mls/hr IV .Bolus ONE Stop: 07/27/19 21:19 Sodium Chloride (Saline Flush) 10 ml FLUSH ASDIRECTED PRN PRN Reason: Keep Vein Open Sodium Chloride (Saline Flush) 2.5 ml FLUSH ASDIRECTED PRN PRN Reason: Keep Vein Open Labs: Laboratory Tests 07/27/19 07/27/19 07/27/19 Range/Units 16:51 16:51 16:51 WBC 13.53 H (4.0-11.0) K/uL RBC 5.12 (4.50-5.90) M/uL Hgb 15.8 (13.0-17.0) g/dL Hct 47.3 (38.0-50.0) % MCV 92.4 (80.0-98.0) fL MCH 30.9 (27.0-32.0) pg MCHC 33.4 (31.0-37.0) g/dL RDW Std Deviation 43.7 (28.0-62.0) fl RDW Coeff of Vicky 13 (11.0-15.0) % Plt Count 510 H (150-400) K/uL MPV 9.00 (7.40-12.00) fL Neut % (Auto) 84.0 H (48.0-80.0) % Lymph % (Auto) 11.2 L (16.0-40.0) % Ellsworth % (Auto) 4.1 (0.0-15.0) % Eos % (Auto) 0.3 (0.0-7.0) % Baso % (Auto) 0.4 (0.0-1.5) % Neut # (Auto) 11.4 H (1.4-5.7) K/uL Lymph # (Auto) 1.5 (0.6-2.4) K/uL Ellsworth # (Auto) 0.6 (0.0-0.8) K/uL Eos # (Auto) 0.0 (0.0-0.7) K/uL Baso # (Auto) 0.1 (0.0-0.1) K/uL Nucleated RBC % 0.0 /100WBC Nucleated RBCs # 0 K/uL Sodium 136 (136-148) mmol/L Potassium 3.6 (3.5-5.1) mmol/L Chloride 100 (98-107) mmol/L Carbon Dioxide 26.9 (21.0-32.0) mmol/L BUN 16 (7.0-18.0) mg/dL Creatinine 0.9 (0.8-1.3) mg/dL Est Cr Clr Drug Dosing 98.56 mL/min Estimated GFR (MDRD) > 60.0 ml/min Glucose 117 H (74-106) mg/dL Calcium 8.8 (8.5-10.1) mg/dL Total Bilirubin 0.4 (0.2-1.0) mg/dL AST 22 (15-37) IU/L ALT 17 (14-63) IU/L Alkaline Phosphatase 82 (46-116) U/L Total Protein 7.4 (6.4-8.2) g/dL Albumin 3.2 L (3.4-5.0) g/dL Globulin 4.2 H (2.6-4.0) g/dL Albumin/Globulin Ratio 0.8 L (0.9-1.6) Lipase 160 (73-393) U/L Urine Color Urine Appearance Urine pH (5.0-8.0) Ur Specific Joaquin (1.001-1.035) Urine Protein (NEGATIVE) mg/dL Urine Glucose (UA) (NEGATIVE) mg/dL Urine Ketones (NEGATIVE) mg/dL Urine Occult Blood (NEGATIVE) Urine Nitrite (NEGATIVE) Urine Bilirubin (NEGATIVE) Urine Urobilinogen (<2.0) EU/dL Ur Leukocyte Esterase (NEGATIVE) 07/27/19 Range/Units 20:17 WBC (4.0-11.0) K/uL RBC (4.50-5.90) M/uL Hgb (13.0-17.0) g/dL Hct (38.0-50.0) % MCV (80.0-98.0) fL MCH (27.0-32.0) pg MCHC (31.0-37.0) g/dL RDW Std Deviation (28.0-62.0) fl RDW Coeff of Vicky (11.0-15.0) % Plt Count (150-400) K/uL MPV (7.40-12.00) fL Neut % (Auto) (48.0-80.0) % Lymph % (Auto) (16.0-40.0) % Ellsworth % (Auto) (0.0-15.0) % Eos % (Auto) (0.0-7.0) % Baso % (Auto) (0.0-1.5) % Neut # (Auto) (1.4-5.7) K/uL Lymph # (Auto) (0.6-2.4) K/uL Ellsworth # (Auto) (0.0-0.8) K/uL Eos # (Auto) (0.0-0.7) K/uL Baso # (Auto) (0.0-0.1) K/uL Nucleated RBC % /100WBC Nucleated RBCs # K/uL Sodium (136-148) mmol/L Potassium (3.5-5.1) mmol/L Chloride (98-107) mmol/L Carbon Dioxide (21.0-32.0) mmol/L BUN (7.0-18.0) mg/dL Creatinine (0.8-1.3) mg/dL Est Cr Clr Drug Dosing mL/min Estimated GFR (MDRD) ml/min Glucose (74-106) mg/dL Calcium (8.5-10.1) mg/dL Total Bilirubin (0.2-1.0) mg/dL AST (15-37) IU/L ALT (14-63) IU/L Alkaline Phosphatase (46-116) U/L Total Protein (6.4-8.2) g/dL Albumin (3.4-5.0) g/dL Globulin (2.6-4.0) g/dL Albumin/Globulin Ratio (0.9-1.6) Lipase (73-393) U/L Urine Color YELLOW Urine Appearance CLEAR Urine pH 5.5 (5.0-8.0) Ur Specific Joaquin 1.010 (1.001-1.035) Urine Protein NEGATIVE (NEGATIVE) mg/dL Urine Glucose (UA) NEGATIVE (NEGATIVE) mg/dL Urine Ketones TRACE H (NEGATIVE) mg/dL Urine Occult Blood NEGATIVE (NEGATIVE) Urine Nitrite NEGATIVE (NEGATIVE) Urine Bilirubin NEGATIVE (NEGATIVE) Urine Urobilinogen 1.0 (<2.0) EU/dL Ur Leukocyte Esterase NEGATIVE (NEGATIVE) Meds: Medications Generic Name Dose Route Start Last Admin Trade Name Freq PRN Reason Stop Dose Admin Sodium Chloride 1,000 mls @ 1,000 mls/hr 07/27/19 20:20 Normal Saline IV 07/27/19 21:19 .Bolus ONE Sodium Chloride 10 ml 07/27/19 16:30 Saline Flush FLUSH ASDIRECTED PRN Keep Vein Open Sodium Chloride 2.5 ml 07/27/19 16:30 Saline Flush FLUSH ASDIRECTED PRN Keep Vein Open Discontinued Medications Generic Name Dose Route Start Last Admin Trade Name Freq PRN Reason Stop Dose Admin Sodium Chloride 1,000 mls @ 999 mls/hr 07/27/19 16:30 05/27/20 16:50 Normal Saline IV 07/27/19 17:30 999 mls/hr STAT ONE Administration Iopamidol 90 ml 07/27/19 18:30 07/27/19 18:31 Isovue-370 (76%) IVPUSH 07/27/19 18:31 90 ml ONETIME STA Administration Morphine Sulfate 4 mg 07/27/19 20:10 Morphine IVPUSH 07/27/19 20:11 ONETIME ONE Ondansetron HCl 4 mg 07/27/19 16:30 07/27/19 16:50 Zofran IVPUSH 07/27/19 16:31 4 mg ONETIME ONE Administration Ondansetron HCl 4 mg 07/27/19 19:30 07/27/19 19:49 Zofran IVPUSH 07/27/19 19:31 4 mg ONETIME ONE Administration Departure - Departure Time of Disposition: 20:58 Disposition: Home, Self-Care 01 Condition: Good Clinical Impression: Abdominal pain, Vomiting - Discharge Information Prescriptions: Hydrocodone/Acetaminophen [Callahan 10-325 Tablet] 1 each PO Q4H PRN #15 tablet PRN Reason: Pain (Severe 7-10) Ondansetron [Zofran ODT] 4 mg PO Q6H PRN #10 tab.dis PRN Reason: Nausea/Vomiting Referrals: PCP,Unknown [Primary Care Provider] - Forms: ED Department Discharge Additional Instructions: The following information is given to patients seen in the emergency department who are being discharged to home. This information is to outline your options for follow-up care. We provide all patients seen in our emergency department with a follow-up referral. The need for follow-up, as well as the timing and circumstances, are variable depending upon the specifics of your emergency department visit. If you don't have a primary care physician on staff, we will provide you with a referral. We always advise you to contact your personal physician following an emergency department visit to inform them of the circumstance of the visit and for follow-up with them and/or the need for any referrals to a consulting specialist. The emergency department will also refer you to a specialist when appropriate. This referral assures that you have the opportunity for follow-up care with a specialist. All of these measure are taken in an effort to provide you with optimal care, which includes your follow-up. Under all circumstances we always encourage you to contact your private physician who remains a resource for coordinating your care. When calling for follow-up care, please make the office aware that this follow-up is from your recent emergency room visit. If for any reason you are refused follow-up, please contact the [facility] Emergency Department at and asked to speak to the emergency department charge nurse. [facility] [address] [place] [id number] [facility] [address] [place] [id number] Take zofran as needed for nausea and vomiting. You may take norco as needed for severe pain, do not take while driving as it may make you drowsy Follow up with general surgery at your scheduled appointment Return to ED as needed as discussed Sepsis Event Note - Evaluation Sepsis Screening Result: No Definite Risk - Focused Exam Vital Signs: Vital Signs Temp Pulse Resp BP Pulse Ox 07/27/19 16:33 97.7 F 83 16 112/85 95 Date Exam was Performed: 07/27/19 Time Exam was Performed: 20:55 - My Orders Last 24 Hours: My Active Orders 07/27/19 16:30 Sodium Chloride 0.9% [Saline Flush] 10 ml FLUSH ASDIRECTED PRN Sodium Chloride 0.9% [Saline Flush] 2.5 ml FLUSH ASDIRECTED PRN Saline Lock Insert [OM.PC] Stat - Assessment/Plan Last 24 Hours: My Active Orders 07/27/19 16:30 Sodium Chloride 0.9% [Saline Flush] 10 ml FLUSH ASDIRECTED PRN Sodium Chloride 0.9% [Saline Flush] 2.5 ml FLUSH ASDIRECTED PRN Saline Lock Insert [OM.PC] Stat
[2019-07-27 17:40] LABS: BLOOD UREA NITROGEN,BUN 16 mg/dL (7.0-18.0); CARBON DIOXIDE,CO2 26.9 mmol/L (21.0-32.0); CHLORIDE,CL 100 mmol/L (98-107); GLUCOSE RANDOM 117 mg/dL (74-106); POTASSIUM,K 3.6 mmol/L (3.5-5.1); SODIUM,NA 136 mmol/L (136-148)
[2019-07-27] MEDS ORDERED: Iopamidol 755 Mg/ML 100 ML Bottle IVPUSH STA (18:30)
--- NOTE | 2019-07-27 18:53 | CT ---
CT abdomen and pelvis Technique: Multiple axial sections were obtained from above the dome of the diaphragm inferiorly through the pubic symphysis. Intravenous and oral contrast not utilized. Comparison: Previous CT abdomen and pelvis study of 06/25/19. Findings: Visualized lung bases show nothing acute. Lesion is noted within the upper right lobe of the liver. This measures about 4.1 cm in size and is felt to be minimally increased in size from previous exam. 2nd lesion is seen within the right lobe of the liver measuring about 3.1 cm in size which on prior study measures about 2.7 cm in size. No additional abnormalities are appreciated within the liver. Gallbladder shows no calcified gallstones. Dilated fluid-filled stomach is seen. Uncertain as to etiology of this finding. Spleen size is normal. No discrete adrenal nodule is seen. Kidneys show symmetric contrast enhancement. Cyst is noted within the left kidney measuring 1.2 cm in size. No additional abnormalities are seen within the kidneys. Aorta shows atherosclerotic change without aneurysm. Pancreas appears within normal limits. No mesenteric adenopathy is seen. No retroperitoneal adenopathy is seen. Bowel wall thickening and soft tissue density is noted within the sigmoid colon. This presumably represents carcinoma. Please correlate that previous presumed cancer has not been resected or if this represents a recurrence. This finding appears more prominent than seen previously. Bone window settings were reviewed which shows scattered degenerative change within the spine. Ostomy is noted within the left lower abdomen. Impression: 1. 2 slightly enlarging liver lesions most likely metastatic in origin. 2. Increasing bowel wall thickening and mass within the sigmoid colon. This presumably represents worsening neoplasm and please correlate if patient's previous presumed carcinoma in this area has been resected or not. 3. Ostomy within the left lower abdomen. 4. Dilated fluid-filled stomach of uncertain etiology. 5. Other findings believed to be incidental as described above. Diagnostic code #9 This report was dictated in MDT
[2019-07-27] MEDS ORDERED: Morphine 4 MG/ML Syringe IVPUSH ONE (20:10)
== END 2019-07-27 21:32 | disposition home or self-care (01) ==
LOC: MW.ED 16:19
DX: R10.84 Generalized abdominal pain (principal); R11.2 Nausea with vomiting, unspecified; Z98.890 Other specified postprocedural states
CPT/HCPCS: 36415; 74177; 80053; 81003; 83690; 85025; 96361; 96374; 96375; 96376; 99284; J2270; J2405; J7030; Q9967; 99283

== ENCOUNTER 2019-08-29 06:33 | Day surgery (SDC) | payer MEDICAID ==
[~2019-08-29 06:33] MED LIST changes: +Lactated Ringers 1,000 ML IV SCH; -Sodium Chloride 0.9% 10 ML SDV IV PRN; -Sodium Chloride 0.9% 10 ML Syringe FLUSH PRN; -Sodium Chloride 0.9% 2.5 ML Syringe FLUSH PRN; +ceFAZolin 2 GM in Premix Bag 1 BAG IV ONE
--- NOTE | 2019-08-29 07:20 | PCM.PREANE ---
Preanesthetic Assessment - Anesthesia/Transfusion/Family Hx Anesthesia History: Prior Anesthesia Without Reaction Family History of Anesthesia Reaction: No Transfusion History: No Prior Transfusion(s) Intubation History: Unknown - Review of Systems General: No Symptoms Pulmonary: No Symptoms Cardiovascular: No Symptoms Gastrointestinal: No Symptoms Neurological: No Symptoms Other: Reports: None - Physical Assessment NPO Status Date: 08/29/19 (cl upon arrival at 0630) Vital Signs: Last Vital Signs Temp 97.3 F 08/29/19 06:40 Pulse 68 08/29/19 06:40 Resp 16 08/29/19 06:40 BP 100/68 08/29/19 06:40 Pulse Ox 98 08/29/19 06:40 Height: 5 ft 11 in Weight: 68.946 kg ASA Class: 2 Mental Status: Alert & Oriented x3 Airway Class: Mallampati = 1 Dentition: Reports: Normal Dentition ROM/Head Extension: Full Lungs: Clear to Auscultation, Normal Respiratory Effort Cardiovascular: Regular Rate, Regular Rhythm - Allergies Allergies/Adverse Reactions: Allergies Allergy/AdvReac Type Severity Reaction Status Date / Time No Known Allergies Allergy Verified 08/23/19 11:23 - Blood Blood Available: No - Anesthesia Plan Pre-Op Medication Ordered: None - Acknowledgements Anesthesia Type Planned: MAC Pt an Appropriate Candidate for the Planned Anesthesia: Yes Alternatives and Risks of Anesthesia Discussed w Pt/Guardian: Yes Pt/Guardian Understands and Agrees with Anesthesia Plan: Yes Additional Comments: PMH: colon ca with liver mets, is hep C+, not yet treated, smoker, no alcohol use x 20 yrs PLAN: mac, delay start until after 0830 PreAnesthesia Questionnaire HEENT History: Reports: None Cardiovascular History: Reports: Heart Murmur Respiratory History: Reports: None Gastrointestinal History: Reports: Hepatitis, Other (See Below) Other Gastrointestinal History: hepatitis C, not treated, 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 (with possible liver metastases according to H&P) Genitourinary History: Reports: None Musculoskeletal History: Reports: Fracture Other Musculoskeletal History: fx arm as a child Neurological History: Reports: None Psychiatric History: Reports: None Endocrine/Metabolic History: Reports: None Hematologic History: Reports: None Immunologic History: Reports: None Oncologic (Cancer) History: Reports: Colon Dermatologic History: Reports: None - Infectious Disease History Infectious Disease History: Reports: Hepatitis C - Past Surgical History Head Surgeries/Procedures: Reports: None HEENT Surgical History: Reports: None Cardiovascular Surgical History: Reports: None Respiratory Surgical History: Reports: None GI Surgical History: Reports: Colon, Colostomy, Other (See Below) Other GI Surgeries/Procedures: hx flexible sigmoidoscopy, surgery for obstructing colon mass with colostomy Male Surgical History: Reports: None Endocrine Surgical History: Reports: None Neurological Surgical History: Reports: None Musculoskeletal Surgical History: Reports: None Oncologic Surgical History: Reports: None Dermatological Surgical History: Reports: None - SUBSTANCE USE Tobacco Use Within Last Twelve Months: Cigarettes Recreational Drug Use History: Yes Recreational Drug Type: Reports: Methamphetamine - HOME MEDS Home Medications: Home Meds Ondansetron [Zofran ODT] 4 mg PO Q6H PRN #10 tab.dis 07/27/19 [Rx] oxyCODONE HCl/Acetaminophen [Oxycodone-Acetaminophen 5-325] 1 - 2 tab PO ASDIRECTED PRN 08/23/19 [History] - CURRENT (IN HOUSE) MEDS Current Meds: Current Medications Lactated Ringer's (Ringers, Lactated) 1,000 mls @ 125 mls/hr IV ASDIRECTED AMANDA Last Admin: 08/29/19 06:50 Dose: 125 mls/hr Documented by: Discontinued Medications Cefazolin Sodium/Dextrose 2 gm (/ Premix) 50 mls @ 100 mls/hr IV ONETIME ONE Stop: 08/29/19 06:29
[2019-08-29] MEDS ORDERED: Midazolam 1 MG/ML 2 ML SDV ONE ×2 (07:30→09:59)
[2019-08-29] MEDS ORDERED: fentaNYL 100 MCG/2 ML SDV ONE (07:30)
[2019-08-29] MEDS ORDERED: Propofol 200 MG/20 ML SDV ONE (07:30)
[2019-08-29] MEDS ORDERED: Lidocaine 1% 20 ML MDV ONE (07:33)
[2019-08-29] MEDS ORDERED: Heparin Sodium 100 Units/ML 3 ML Syringe ONE ×2 (07:33→10:25)
[2019-08-29] MEDS ORDERED: Bupivacaine 0.5% 30 ML SDV ONE (07:33)
[2019-08-29] MEDS ORDERED: Ondansetron 4 MG/2 ML SDV IVPUSH ONE (08:26)
[2019-08-29] MEDS ORDERED: ceFAZolin/Dextrose,Iso-Osmotic 2 GM/50 ML Duplex Bag IV ONE (08:31)
[2019-08-29] MEDS ORDERED: Lactated Ringers 1,000 ML IV SCH (11:00)
[2019-08-29] MEDS ORDERED: Acetaminophen/HYDROcodone 325-10 MG Tab PO PRN (11:00)
--- NOTE | 2019-08-29 11:05 | PCM.OPNOTE ---
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 Need for chemotherapy. 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
[2019-08-29] MEDS: fentaNYL 100 MCG/2 ML SDV IVPUSH PRN ×2 (11:12→11:20)
--- NOTE | 2019-08-29 11:12 | CR ---
Chest: 4 fluoroscopic spot views were obtained of the left side of the chest. Study shows Port-A-Cath placement. Fluoroscopy time given as 772.1 seconds. Impression: 1. Procedural study as noted above.
--- NOTE | 2019-08-29 11:26 | PCM.POSTAN ---
POST ANESTHESIA ASSESSMENT - MENTAL STATUS Mental Status: Alert, Oriented - VITAL SIGNS Vital Signs: Last Vital Signs Temp 97.1 F 08/29/19 10:50 Pulse 55 L 08/29/19 11:20 Resp 10 L 08/29/19 11:20 BP 95/61 08/29/19 11:20 Pulse Ox 96 08/29/19 11:20 - RESPIRATORY Respiratory Status: Respiratory Rate WNL, Airway Patent, O2 Saturation Stable - CARDIOVASCULAR CV Status: Pulse Rate WNL, Blood Pressure Stable - GASTROINTESTINAL GI Status: No Symptoms - PAIN Pain Score: 3 - POST OP HYDRATION Hydration Status: Adequate & Stable
--- NOTE | 2019-08-29 11:34 | CR ---
Chest: Portable view of the chest was obtained. Comparison: Prior chest x-ray of 07/04/19. Findings: Heart size and mediastinum are normal. Lung markings are slightly increased most likely relating to technique. No acute parenchymal change is seen. No pneumothorax is noted. Mild scoliosis is present within the spine. Impression: 1. Nothing acute is seen on portable chest x-ray. Diagnostic code #2 This report was dictated in MDT
--- NOTE | 2019-08-29 12:46 | PCM48HPAN ---
Post Anesthesia Note - EVALUATION WITHIN 48HRS OF ANESTHETIC Vital Signs in Normal Range: Yes Patient Participated in Evaluation: Yes Respiratory Function Stable: Yes Airway Patent: Yes Cardiovascular Function Stable: Yes Hydration Status Stable: Yes Pain Control Satisfactory: Yes Nausea and Vomiting Control Satisfactory: Yes Mental Status Recovered: Yes Vital Signs: Last Vital Signs Temp 97.1 F 08/29/19 10:50 Pulse 53 L 08/29/19 11:25 Resp 12 08/29/19 11:25 BP 97/68 08/29/19 11:25 Pulse Ox 97 08/29/19 11:25
--- NOTE | 2019-08-29 15:43 | OR ---
SURGEON: Shad Jauregui M.D. 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 PRIMARY SURGEON: Shad Jauregui MD INTRAOPERATIVE CONSULTATION: Soni Yun MD ANESTHESIA: Local MAC. ASA CLASSIFICATION: IV. PREOPERATIVE DIAGNOSES: 1. Metastatic carcinoma of the colon. 2. History of hepatitis C. POSTOPERATIVE DIAGNOSES: 1. Metastatic carcinoma of the colon. 2. History of hepatitis C. ESTIMATED BLOOD LOSS: 20 mL. INTRAOPERATIVE FLUID REPLACEMENT: 1200 mL of crystalloid. DESCRIPTION OF PROCEDURE: The patient was taken to the operating room and placed on the operating table in the supine position. Time-out was called for appropriate identification of the patient and procedure. The surgical site had been marked prior to the patient entering the operating room and the approach was to be an attempted left cephalic vein approach with conversion to left subclavian if needed. The skin having been prepped with DuraPrep solution, sterile drapes were now applied. Skin incision was marked out in the left deltopectoral groove. The skin was then infiltrated with 1% Xylocaine and 0.5% Marcaine solution. Skin incision was made and deepened through the subcutaneous tissue, obtaining hemostasis with the use of electrocautery. Dissection was carried down to the left deltopectoral groove; however, we could not find a satisfactory cephalic vein to work with. Therefore, the approach was abandoned and a subclavian approach was indicated. The skin just below the junction of the medial one-third and lateral two-thirds of the left clavicle was infiltrated with 1% Xylocaine and 0.5% Marcaine solution. The left subclavian vein was cannulated with good blood return and no return of air. Guidewire was placed through the needle, however, it did coil up several times. Ultimately, we were able to get the guidewire in position, however, it approaches the heart from the left side as if there is an anomalous venous return to the heart. Dr. Yun was called in for intraoperative consultation and observed much of this as well. After discussion, we felt that it was not safe to continue and try to place the catheter, although I did on one occasion pass the peel-away sheath and threaded the catheter through this. With the catheter in good position, we could never get an adequate venous return and it was not felt safe to continue the procedure. Dr. Yun also did not feel that it was appropriate to attempt a jugular approach on the left side or try to go to the right side given the anomalous appearance of the intrathoracic venous anatomy. Therefore it was elected to abandon the procedure in the patient's best interest. Wounds were inspected for hemostasis and small bleeding sites were electrocoagulated. The left deltopectoral incision was closed with 3-0 Vicryl in the subcutaneous tissue and 4-0 Monocryl for skin incision. The puncture site under the left clavicle was closed with a subcuticular 4-0 Monocryl. Both incisions were steri- stripped and dressed with sterile Tegaderm pads. Sponge, needle, and instrument counts were all correct. Following emergence from anesthesia, the patient was taken to recovery room in stable condition. Chest x-ray will be obtained in recovery room. ESTHER / BENJAMÍN /[id number] HESHAM
--- NOTE | 2019-08-30 08:33 | PCM.SN.2 ---
- Free Text/Narrative Note: I was asked to assist in a port a cath placement with Dr. Shad Jauregui for this patient. When I arrived in the OR there was a guide needle under the left clavicle. Dr. Jauregui had good return of venous blood. He placed a guidewire into the left chest. This was performed under fluoro. The wire passed easily but seemed to coil in the left chest over the heart. The patient did not appear rotated. Dr. Jauregui had placed a catheter sheath and dilator over the wire. He placed the catheter tubing through the vascular sheath but there was no return of blood. He made multiple attempts to access the left side but again the anatomy on fluoroscopy was not straight forward. Again, no matter how many attempts we made, the catheter tubing kept coiling over the left side of the chest. We discussed possibly attempting a right sided catheter placement but given the unclear anatomy and the left sided manipulation, it was felt that we should abort any further attempts. The decision was made to get a post op chest xray to make sure the patient didn't have a pneumo or hemothorax, then to have him follow up with interventional radiology for port placement in the future so that anatomy can be confirmed.
== END 2019-08-29 12:10 | disposition home or self-care (01) ==
LOC: MW.SDS 06:33
PROVIDERS: ATTEND Surgery
DX: C18.9 Malignant neoplasm of colon, unspecified (principal); Q27.8 Other specified congenital malformations of peripheral vascular system; K76.9 Liver disease, unspecified; K92.1 Melena; F17.210 Nicotine dependence, cigarettes, uncomplicated; Z93.3 Colostomy status; Z72.89 Other problems related to lifestyle; Z86.19 Personal history of other infectious and parasitic diseases; Z87.898 Personal history of other specified conditions
CPT/HCPCS: 36561; 71045; 76000; J0690; J1642; J2001; J2250; J2704; J3010; J3490; J7120

== ENCOUNTER 2020-04-24 15:15 | Emergency (ER) | payer MEDICAID ==
[2020-04-24] MEDS ORDERED: Acetaminophen/oxyCODONE 325-5 MG Tab PO ONE (15:43)
--- NOTE | 2020-04-24 15:47 | EDM.PDOC ---
ED HPI GENERAL MEDICAL PROBLEM - General Chief Complaint: Upper Extremity Injury/Pain Stated Complaint: BROKEN RIGHT ARM Time Seen by Provider: 04/24/20 15:37 Source of Information: Reports: Patient History Limitations: Reports: No Limitations - History of Present Illness INITIAL COMMENTS - FREE TEXT/NARRATIVE: A 55-year-old male history of colon cancer currently on chemo presents today for right shoulder pain. Patient states that 2 days ago he fell onto his right shoulder. Since that time patient has had increased pain to the shoulder and pain with motion. Patient denies any elbow wrist pain numbness weakness to the arm. Patient denies any other injuries no head injury no fever chills altered status. right arm Pain Score (Numeric/FACES): 6 - Related Data Allergies Allergy/AdvReac Type Severity Reaction Status Date / Time No Known Allergies Allergy Verified 04/24/20 15:39 Home Meds: Home Meds Ondansetron [Zofran ODT] 4 mg PO Q6H PRN #10 tab.dis 07/27/19 [Rx] oxyCODONE HCl/Acetaminophen [Oxycodone-Acetaminophen 5-325] 1 - 2 tab PO ASDIRECTED PRN 08/23/19 [History] Acetaminophen/oxyCODONE [Percocet 325-5 MG] 1 tab PO Q8HR PRN 7 Days #21 tab 04/24/20 [Rx] Past Medical History HEENT History: Reports: None Cardiovascular History: Reports: Heart Murmur Respiratory History: Reports: None Gastrointestinal History: Reports: Hepatitis, Other (See Below) Other Gastrointestinal History: hepatitis C, not treated, 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 (with possible liver metastases according to H&P) Genitourinary History: Reports: None Musculoskeletal History: Reports: Fracture Other Musculoskeletal History: fx arm as a child Neurological History: Reports: None Psychiatric History: Reports: None Endocrine/Metabolic History: Reports: None Hematologic History: Reports: None Immunologic History: Reports: None Oncologic (Cancer) History: Reports: Colon Dermatologic History: Reports: None - Infectious Disease History Infectious Disease History: Reports: Hepatitis C - Past Surgical History Head Surgeries/Procedures: Reports: None HEENT Surgical History: Reports: None Cardiovascular Surgical History: Reports: None Respiratory Surgical History: Reports: None GI Surgical History: Reports: Colon, Colostomy, Other (See Below) Other GI Surgeries/Procedures: hx flexible sigmoidoscopy, surgery for obstructing colon mass with colostomy Male Surgical History: Reports: None Endocrine Surgical History: Reports: None Neurological Surgical History: Reports: None Musculoskeletal Surgical History: Reports: None Oncologic Surgical History: Reports: None Dermatological Surgical History: Reports: None Social & Family History - Family History Family Medical History: No Pertinent Family History - Caffeine Use Caffeine Use: Reports: Soda, Tea Review of Systems - Review of Systems Review Of Systems: See Below Constitutional: Reports: No Symptoms Eyes: Reports: No Symptoms Ears: Reports: No Symptoms Nose: Reports: No Symptoms Mouth/Throat: Reports: No Symptoms Respiratory: Reports: No Symptoms Cardiovascular: Reports: No Symptoms GI/Abdominal: Reports: No Symptoms Genitourinary: Reports: No Symptoms Musculoskeletal: Reports: Shoulder Pain Skin: Reports: No Symptoms Neurological: Reports: No Symptoms Psychiatric: Reports: No Symptoms ED EXAM, GENERAL - Physical Exam Exam: See Below Exam Limited By: No Limitations General Appearance: Alert, WD/WN, No Apparent Distress Eye Exam: Bilateral Eye: EOMI Respiratory/Chest: No Respiratory Distress, Lungs Clear, Normal Breath Sounds Cardiovascular: Normal Peripheral Pulses, Regular Rate, Rhythm Peripheral Pulses: 2+: Radial (L), Radial (R) GI/Abdominal: Normal Bowel Sounds, Soft Extremities: Normal Inspection, Limited Range of Motion (shoulder due to pain ) Course - Vital Signs Last Recorded V/S: Last Vital Signs Temp 96.5 F L 04/24/20 15:35 Pulse 100 04/24/20 15:35 Resp 16 04/24/20 15:35 BP 107/73 04/24/20 15:35 Pulse Ox 95 04/24/20 15:35 - Orders/Labs/Meds Orders: Active Orders 24 hr Category Date Time Status DME for Discharge [COMM] Stat Oth 04/24/20 16:43 Ordered Meds: Medications Discontinued Medications Generic Name Dose Route Start Last Admin Trade Name Freq PRN Reason Stop Dose Admin Oxycodone/Acetaminophen 1 tab 04/24/20 15:43 04/24/20 16:20 Percocet 325-5 Mg PO 04/24/20 15:44 1 tab ONETIME ONE Administration - Re-Assessments/Exams Free Text/Narrative Re-Assessment/Exam: 04/24/20 16:44 Patient has a fracture of his femur neck. Patient has good sensation good handgrip good pulses we placed in a sling and have patient follow-up orthopedics this week. Departure - Departure Time of Disposition: 16:44 Disposition: Home, Self-Care 01 Condition: Good Clinical Impression: Humerus surgical neck fracture - Discharge Information *PRESCRIPTION DRUG MONITORING PROGRAM REVIEWED*: Not Applicable *COPY OF PRESCRIPTION DRUG MONITORING REPORT IN PATIENT PRECIOUS: Not Applicable Prescriptions: Acetaminophen/oxyCODONE [Percocet 325-5 MG] 1 tab PO Q8HR PRN 7 Days #21 tab PRN Reason: Pain (Severe 7-10) Instructions: Humerus Fracture Treated With Immobilization, [id number] Referrals: PCP,None [Primary Care Provider] - Forms: ED Department Discharge Additional Instructions: The following information is given to patients seen in the emergency department who are being discharged to home. This information is to outline your options for follow-up care. We provide all patients seen in our emergency department with a follow-up referral. The need for follow-up, as well as the timing and circumstances, are variable depending upon the specifics of your emergency department visit. If you don't have a primary care physician on staff, we will provide you with a referral. We always advise you to contact your personal physician following an emergency department visit to inform them of the circumstance of the visit and for follow-up with them and/or the need for any referrals to a consulting specialist. The emergency department will also refer you to a specialist when appropriate. This referral assures that you have the opportunity for follow-up care with a specialist. All of these measure are taken in an effort to provide you with optimal care, which includes your follow-up. Under all circumstances we always encourage you to contact your private physician who remains a resource for coordinating your care. When calling for follow-up care, please make the office aware that this follow-up is from your recent emergency room visit. If for any reason you are refused follow-up, please contact the [facility] Emergency Department at and asked to speak to the emergency department charge nurse. Please follow up with your primary care physician. If you do not have a primary care physician, see below: [facility] Professional [address], [address] [place] [address] Please with the orthopedic doctor this week. If you have any numbness to the arm decrease sensation increased pain please return to the ED. We will provide you some pain medication to take if the pain becomes really bad. Sepsis Event Note (ED) - Evaluation Sepsis Screening Result: No Definite Risk - Focused Exam Vital Signs: Vital Signs Temp Pulse Resp BP Pulse Ox 04/24/20 15:35 96.5 F L 100 16 107/73 95 - My Orders Last 24 Hours: My Active Orders 04/24/20 16:43 DME for Discharge [COMM] Stat - Assessment/Plan Last 24 Hours: My Active Orders 04/24/20 16:43 DME for Discharge [COMM] Stat Plan: Is a 55-year-old male presents today for right shoulder pain. Patient fell onto the shoulder. Will obtain x-ray and give pain control and reassess.
--- NOTE | 2020-04-24 16:29 | CR ---
INDICATION: Fell; pain right shoulder. TECHNIQUE: Three-view study right shoulder. FINDINGS: Undisplaced fracture surgical neck of the right humerus. Avulsion fracture right greater tuberosity. Port-A-Cath in place. Impression : Undisplaced fracture surgical neck right humerus and avulsion right greater tuberosity. Dictated by Rudi Courtney MD @ Apr 24 2020 4:26PM Signed by Dr. Rudi Courtney @ Apr 24 2020 4:28PM
== END 2020-04-24 17:01 | disposition home or self-care (01) ==
LOC: MW.ED 15:15
DX: S42.211A Unspecified displaced fracture of surgical neck of right humerus, initial encounter for closed fracture (principal); S72.009A Fracture of unspecified part of neck of unspecified femur, initial encounter for closed fracture; W19.XXXA Unspecified fall, initial encounter
CPT/HCPCS: 73030; 99283; A9270